=== PATIENT | male | born 1955 | race Caucasian/White ===

== ENCOUNTER → 2021-02-10 | Outpatient (CLI) | payer OTHER ==
[~2021-02-10] MED LIST: ALLEGRA ALLERG180 MG PO; AZOR 10-40 MG1 EACH PO; CYCLOBENZAPRINE10 MG PO; DYMISTA NASAL S23 GM; ECOTRIN81 MG PO; FISH OIL 1,0001 EAC1 PO; FLONASE 0.05% N16 GM; FLONASE ALLER15.8 ML; GLUCOPHAGE1000 MG PO; GLUCOTROL 10 MG10 MG PO; IMDUR ER TAB 3030 MG PO; JARDIANCE25 MG PO; LEVAQUIN750 MG PO; MEDROL4 MG PO; OXYGEN; PERCOCET 5/325 T1 EA PO; PRAVACHOL20 MG PO; SINGULAIR10 MG PO; SYMBICORT 80-10.2 GM INH; TOPROL XL25 MG PO; VENTOLIN HFA 66.7 GM INH; VICTOZA 1818 MG/3 ML SQ; VITAMIN D35000 UNI1 PO
== END ==
LOC: KOH-I 12:42
DX: F17.210 Nicotine dependence, cigarettes, uncomplicated (principal); R91.8 Other nonspecific abnormal finding of lung field
CPT/HCPCS: 71271

== ENCOUNTER → 2021-02-26 | Outpatient (CLI) | payer OTHER | LOC: CT 02-24 08:30 | DX: R91.1 Solitary pulmonary nodule (principal); K80.20 Calculus of gallbladder without cholecystitis without obstruction; E04.2 Nontoxic multinodular goiter | CPT/HCPCS: 36415; 71260; 82565; Q9967 ==

== ENCOUNTER → 2021-03-07 | Outpatient (CLI) | payer OTHER | LOC: KOH-I 12:53 | DX: E04.1 Nontoxic single thyroid nodule (principal) | CPT/HCPCS: 76536 ==

== ENCOUNTER → 2021-03-16 | Outpatient (CLI) | payer OTHER ==
[~2021-03-16] MED LIST changes: +AUGMENTIN 875-1 EACH PO; +FLOXIN 0.3% OTIC5 ML EARLF; +NAPROXEN500 MG PO
== END ==
LOC: SLEEP 10:33
DX: D75.1 Secondary polycythemia (principal); J44.9 Chronic obstructive pulmonary disease, unspecified; G47.33 Obstructive sleep apnea (adult) (pediatric); R09.02 Hypoxemia
CPT/HCPCS: 95810

== ENCOUNTER 2021-04-12 07:24 | Emergency (ER) | payer OTHER ==
[~2021-04-12 07:24] MED LIST changes: -AUGMENTIN 875-1 EACH PO; -FLOXIN 0.3% OTIC5 ML EARLF; -NAPROXEN500 MG PO
[2021-04-12] MEDS ORDERED: NAPROXEN500 MG PO (08:41)
[2021-04-12] MEDS ORDERED: FLOXIN 0.3% OTIC5 ML EARLF (08:41)
[2021-04-12] MEDS ORDERED: AUGMENTIN 875-1 EACH PO (08:41)
== END 2021-04-12 08:50 | disposition home or self-care (01) ==
LOC: ER1 07:24
DX: H66.93 Otitis media, unspecified, bilateral (principal); H60.92 Unspecified otitis externa, left ear; J06.9 Acute upper respiratory infection, unspecified; E11.9 Type 2 diabetes mellitus without complications; I10 Essential (primary) hypertension; J44.9 Chronic obstructive pulmonary disease, unspecified; E78.5 Hyperlipidemia, unspecified; Z88.8 Allergy status to other drugs, medicaments and biological substances; F17.200 Nicotine dependence, unspecified, uncomplicated
CPT/HCPCS: 99284

== ENCOUNTER → 2021-06-09 | Outpatient (CLI) | payer MEDICARE, OTHER ==
[~2021-06-09] MED LIST changes: +AUGMENTIN 875-1 EACH PO; +FLOXIN 0.3% OTIC5 ML EARLF; +NAPROXEN500 MG PO
== END ==
LOC: KOH-I 10:29
DX: R91.8 Other nonspecific abnormal finding of lung field (principal)
CPT/HCPCS: 71250

== ENCOUNTER → 2021-08-20 | Outpatient (CLI) | payer MEDICARE, OTHER | LOC: LAB 09:20 | DX: E11.9 Type 2 diabetes mellitus without complications (principal) | CPT/HCPCS: 82565; 84520 ==

== ENCOUNTER → 2021-09-11 | Outpatient (CLI) | payer MEDICARE | LOC: CT 07:11 | DX: H49.21 Sixth [abducent] nerve palsy, right eye (principal); H53.2 Diplopia | CPT/HCPCS: 70470; 70482; Q9967 ==

== ENCOUNTER → 2021-09-25 | Outpatient (CLI) | payer MEDICARE, OTHER | LOC: KOH-I 09-18 15:30 | DX: R91.1 Solitary pulmonary nodule (principal); K80.20 Calculus of gallbladder without cholecystitis without obstruction | CPT/HCPCS: 71250 ==

== ENCOUNTER 2022-01-29 10:03 | Emergency (ER) | payer MEDICARE, MEDICAID ==
[2022-01-29] MEDS ORDERED: CEPHALEXIN500 M1 PO (12:59)
== END 2022-01-29 13:02 | disposition home or self-care (01) ==
LOC: ER1 10:03
DX: S52.514A Nondisplaced fracture of right radial styloid process, initial encounter for closed fracture (principal); S50.811A Abrasion of right forearm, initial encounter; F17.200 Nicotine dependence, unspecified, uncomplicated; V86.99XA Unspecified occupant of other special all-terrain or other off-road motor vehicle injured in nontraffic accident, initial encounter; Y92.410 Unspecified street and highway as the place of occurrence of the external cause; Z23 Encounter for immunization
CPT/HCPCS: 29125; 73110; 90471; 90714; 99283